=== PATIENT | female | born 1965 | race African-American/Black ===

== ENCOUNTER 2018-10-15 08:08 | Day surgery (SDC) | payer BC ==
[2018-10-14 08:40] VITALS: BMI 30.1
--- NOTE | 2018-10-15 07:38 | HP ---
[facility] - Chief Complaint Chief Complaint: left knee pain - Past Medical History Allergies/Adverse Reactions: Allergies Allergy/AdvReac Type Severity Reaction Status Date / Time latex Allergy Severe Difficulty Verified 10/14/18 08:40 Breathing ...LMP: 09/12/12 ...LMP Comment: > 2years ago - Current Medications Current Medications: Home Medications Medication Instructions Recorded Cromolyn Sodium [Crolom -] 1 drop OU DAILY 10/14/18 Oxycodone HCl/Acetaminophen 1 tab PO Q6H #20 tablet MDD 4 10/15/18 [Percocet 5-325 mg Tablet] [facility] Physical Exam - Physical Examination General Appearance: Well Nourished, Well Developed, Alert & Oriented x3 ENT: Clear Lung: Normal air movement Heart: Regular rate & rhythm Extremities: Other (left knee- + swelling, + ttp, decr rom, + mcmurrays, nvi MRI + mmt, lmt, OA) Neurological: Intact, Alert, Oriented [facility]ellite Impression/Plan - Impression/Plan Impression: left knee internal derangement Operative Procedure: left knee arthroscopy Date to be Performed: 10/15/18
[2018-10-15] MEDS ORDERED: BUPIVACAINE HCL/PF 0.5% (5MG/ML) 10 ML VIAL ONE (08:55)
[2018-10-15] MEDS ORDERED: LIDOCAINE 1%-EPI 1:100,000 30 ML MDV IJ ONE (08:55)
[2018-10-15] MEDS ORDERED: fentaNYL CITRATE 250 MCG/5 ML VIAL ONE (09:25)
[2018-10-15] MEDS ORDERED: PROPOFOL 20 ML ONE ×2 (09:25→09:29)
[2018-10-15] MEDS ORDERED: KETOROLAC TROMETHAMINE 30 MG/1 ML VIAL ONE (09:33)
[2018-10-15] MEDS ORDERED: BUPIVACAINE HCL/PF 0.5% (5MG/ML) 10 ML VIAL IJ ONE (09:38)
[2018-10-15] MEDS ORDERED: LIDOCAINE 1%/EPI 1:100000 (20 ML MULTI DOSE VIAL) IJ ONE (09:38)
[2018-10-15] MEDS ORDERED: oxyCODONE HCL 5 MG TABLET PO PRN ×2 (09:47)
[2018-10-15] MEDS ORDERED: ONDANSETRON 4 MG/2 ML VIAL IVPUSH PRN (09:47)
[2018-10-15] MEDS ORDERED: LACTATED RINGERS SOLUTION 1,000 ML IV SCH (10:00)
--- NOTE | 2018-10-15 10:17 | OP ---
Operative Note - Note: Operative Date: 10/15/18 ([facility]) Pre-Operative Diagnosis: left knee internal derangement Operation: left knee arthroscopy with debridement chondroplasty [facility] [place] Post-Operative Diagnosis: Same as Pre-op Surgeon: Marlon Bucio Anesthesiologist/OFFICE AUTOMATION TECHNICIAN: Maggie Molina Anesthesia: General, Local Specimens Removed: shavings Estimated Blood Loss (mls): 5 Operative Report Dictated: Yes
--- NOTE | 2018-10-15 10:44 | OP ---
DATE OF OPERATION: 10/15/2018 PREOPERATIVE DIAGNOSIS: Internal derangement, left knee. POSTOPERATIVE DIAGNOSIS: Internal derangement, left knee. PROCEDURE: Arthroscopy, left knee, with chondroplasty of the trochlea, patella, and medial femoral condyle. SURGICAL ATTENDING: Marlon Bucio MD ANESTHESIA: General with LMA. CLOSURE: 4-0 nylon. COMPLICATIONS: None. CONDITION: To recovery room in stable condition. DESCRIPTION OF OPERATIVE PROCEDURE: Patient was taken to the operating room on October 15, 2018. General anesthesia with LMA was administered by the anesthesiologist. Left lower extremity was prepped and draped in the usual sterile fashion. The medial and lateral infrapatellar portal sites were infiltrated with 1% Xylocaine with epinephrine. Both portals were made with a 15 blade followed by blunt trocar. The scope was placed in the lateral infrapatellar portal and up into suprapatellar pouch. The knee was inflated with a cocktail of 10 mL of 1% Xylocaine, 10 mL of 0.5% Marcaine, and 20 mL of arthroscopic saline. After allowing the anesthetic to work in the knee, the procedure was performed. The undersurface of the patella was visualized to have some crabmeat, and this was debrided using the shaver. The trochlea had also some corresponding changes centrally, which was debrided using the shaver. The medial and lateral gutters were visualized to be clean with no loose bodies. With valgus stress on the knee, the medial compartment was entered. The medial meniscus was visualized and probed and found to be intact. The medial femoral condyle had some significant changes grade 4. Any loose articular cartilage was debrided using the shaver. The medial tibial plateau was basically intact. At 90 degrees, the ACL and PCL were visualized and probed and found to be intact. In the figure 4 position, the lateral compartment was entered. The lateral meniscus was visualized, probed, and found to be intact. The lateral femoral condyle was run and found to be intact, as was the lateral tibial plateau. The knee was irrigated out with copious amounts of irrigation. The portals were closed using 4-0 nylon. Prior to closure, 20 mL of 0.5% Marcaine was infused into the knee for postoperative analgesia. Sterile pressure dressing was placed over the knee. Patient awakened from anesthesia and transferred to recovery in stable condition. No complications. Estimated blood loss negligible. Diogenes [id number]
[2018-10-15 12:56] VITALS: TEMP 97.9
[2018-10-15 13:31] VITALS: BP 141/75; PULSE 69
== END 2018-10-15 13:30 | disposition home or self-care (01) ==
LOC: JASU-SURG 08:08
PROVIDERS: ATTEND Orthopaedic Surgery
PROC: 0SBD4ZZ Excision of Left Knee Joint, Percutaneous Endoscopic Approach (ICD-10-PCS; principal; 2018-10-15 09:30)
DX: M23.8X2 Other internal derangements of left knee (principal)
CPT/HCPCS: 94760